=== PATIENT | female | born 1950 | race Caucasian/White ===

== ENCOUNTER 2021-10-25 17:57 | Outpatient (REF) | payer MEDICARE, SELFPAY ==
[2021-10-25 21:05] LABS: HGB 14.2 g/dL (11.2-15.7); MCH 33.6 pg (27.0-33.0); MCHC 34.6 % (32.0-36.0); MCV 97 fL (80-95); MPV 9.7 fL (8.0-11.0); Platelet Count 327 10^3/uL (130-400); RBC 4.23 10^6/uL (3.93-5.22); RDW 13.9 % (11.7-14.6); RDW-SD 45.3 fL; WBC 7.15 10^3/uL (4.4-10.8)
[2021-10-25 21:25] LABS: Anion Gap 10.5 mmol/L (3-11); BUN 18 mg/dL (7-18); CO2 27.5 mmol/L (21.0-32.0); CREATININE 1.1 mg/dL (0.55-1.02); Calculated LDL 120 mg/dL (<100); Chloride 105 mmol/L (98-107); Cholesterol 187 mg/dL (<200); Glucose 69 mg/dL (74-106); HDL Cholesterol 48 mg/dL (40-60); Magnesium 2.2 mg/dL (1.8-2.4); Potassium 3.8 mmol/L (3.5-5.1); Sodium 143 mmol/L (136-145); TSH (W/Ref FT4) 1.22 uIU/mL (0.36-3.74); Triglyceride 99 mg/dL (<150)
== END 2021-10-25 17:58 | disposition home or self-care (01) ==
LOC: NCHCN 17:57
PROVIDERS: PCP Internal Medicine; Visit Provider Nurse Practitioner Family
DX: E78.2 Mixed hyperlipidemia (principal); R25.2 Cramp and spasm; E03.9 Hypothyroidism, unspecified; E11.9 Type 2 diabetes mellitus without complications; R53.83 Other fatigue
CPT/HCPCS: 80048; 80061; 85027; 83735; 84443

== ENCOUNTER 2022-01-27 17:22 | Outpatient (REF) | payer MEDICARE, SELFPAY ==
[2022-01-29 16:43] LABS: Albumin ug/mg Crea 5 (<30); Albumin, Ur 0.9 mg/dL (See Note); Creatinine, Ur 180.9 mg/dL (See Note)
== END 2022-01-27 17:23 | disposition home or self-care (01) ==
LOC: NCHCN 17:22
PROVIDERS: PCP Internal Medicine; Visit Provider Nurse Practitioner Family
DX: E11.9 Type 2 diabetes mellitus without complications (principal)
CPT/HCPCS: 82043; 82570

== ENCOUNTER 2022-05-01 12:13 | Outpatient (REF) | payer MEDICARE, SELFPAY ==
[2022-05-01 15:22] LABS: Anion Gap 7.8 mmol/L (3-11); BUN 16 mg/dL (7-18); CO2 28.2 mmol/L (21.0-32.0); Calculated LDL 116 mg/dL (<100); Chloride 103 mmol/L (98-107); Cholesterol 180 mg/dL (<200); Estimated GFR 60.23 (mL/min/1.73m2); Glucose 103 mg/dL (74-106); HDL Cholesterol 48 mg/dL (40-60); Sodium 139 mmol/L (136-145); Triglyceride 81 mg/dL (<150)
== END 2022-05-01 12:14 | disposition home or self-care (01) ==
LOC: NCHCN 12:13
PROVIDERS: PCP Internal Medicine; Visit Provider Nurse Practitioner Family
DX: E78.2 Mixed hyperlipidemia (principal); I10 Essential (primary) hypertension
CPT/HCPCS: 80048; 80061

== ENCOUNTER 2022-12-20 17:46 | Outpatient (REF) | payer MEDICARE, SELFPAY ==
[2022-12-20 22:26] LABS: Microalb ug/mg Crea 3.6 ug/mg Cr
[2022-12-20 22:29] LABS: COMMENT (LAB VIEW ONLY) 394.23 mg/dL
== END 2022-12-20 17:47 | disposition home or self-care (01) ==
LOC: NCHCN 17:46
PROVIDERS: PCP Internal Medicine; Visit Provider Nurse Practitioner Family
DX: E11.9 Type 2 diabetes mellitus without complications (principal)
CPT/HCPCS: 82043; 82570

== ENCOUNTER 2023-04-19 11:28 | Outpatient (REF) | payer MEDICARE, SELFPAY ==
[2023-04-19 21:04] LABS: ALT 26 U/L (14-59); AST 20 U/L (15-37); Albumin 3.4 g/dL (3.4-5.0); Alkaline Phosphatase 132 U/L (46-116); Anion Gap 5.8 mmol/L (3-11); BUN 11 mg/dL (7-18); Bilirubin, Total 0.4 mg/dL (0.2-1.0); CO2 30.2 mmol/L (21.0-32.0); CREATININE 0.9 mg/dL (0.55-1.02); Calcium 9.2 mg/dL (8.5-10.1); Calculated LDL 78 mg/dL (<100); Chloride 109 mmol/L (98-107); Cholesterol 144 mg/dL (<200); Estimated GFR 67.92 (mL/min/1.73m2); Glucose 106 mg/dL (74-106); HDL Cholesterol 50 mg/dL (40-60); Magnesium 1.9 mg/dL (1.8-2.4); Potassium 3.4 mmol/L (3.5-5.1); Sodium 145 mmol/L (136-145); Total Protein 6.7 g/dL (6.4-8.2); Triglyceride 81 mg/dL (<150); Vitamin B12 251 pg/mL (193-986)
[2023-04-20 13:27] LABS: GGT 26 U/L (5-55)
[2023-04-20 15:16] LABS: PHOSPHORUS 3.6 mg/dL (2.6-4.7)
[2023-04-20 15:39] LABS: Vitamin D 25 Total 27.4 ng/mL (30-100)
== END 2023-04-19 11:29 | disposition home or self-care (01) ==
LOC: NCHCN 11:28
PROVIDERS: PCP Internal Medicine; Visit Provider Nurse Practitioner Family
DX: I10 Essential (primary) hypertension (principal); R74.8 Abnormal levels of other serum enzymes; E55.9 Vitamin D deficiency, unspecified; E11.9 Type 2 diabetes mellitus without complications; E03.9 Hypothyroidism, unspecified
CPT/HCPCS: 80053; 80061; 82306; 82607; 82977; 83735; 84100

== ENCOUNTER 2024-03-24 19:22 | Outpatient (REF) | payer MEDICARE, SELFPAY ==
[2024-03-24 15:59] LABS: HCT 40.9 % (36.0-46.0); HGB 14.5 g/dL (11.2-15.7); MCHC 35.5 % (32.0-36.0); MCV 102 fL (80-95); Platelet Count 304 10^3/uL (130-400); RBC 4.03 10^6/uL (3.93-5.22); RDW 16.8 % (11.7-14.6); RDW-SD 47.8 fL
[2024-03-24 18:10] LABS: ALT 27 U/L (14-59); AST 18 U/L (15-37); Albumin 3.3 g/dL (3.4-5.0); Alkaline Phosphatase 126 U/L (46-116); Anion Gap 8.5 mmol/L (3-11); BUN 22 mg/dL (7-18); Bilirubin, Total 0.39 mg/dL (0.2-1.0); CO2 29.5 mmol/L (21.0-32.0); CREATININE 0.9 mg/dL (0.55-1.02); Calcium 8.6 mg/dL (8.5-10.1); Calculated LDL 73 mg/dL (<100); Chloride 109 mmol/L (98-107); Cholesterol 140 mg/dL (<200); Glucose 114 mg/dL (74-106); HDL Cholesterol 53 mg/dL (40-60); Potassium 4.4 mmol/L (3.5-5.1); Sodium 147 mmol/L (136-145); Total Protein 6.1 g/dL (6.4-8.2); Triglyceride 74 mg/dL (<150); Vitamin B12 249 pg/mL (193-986); Vitamin D 25 Total 42.6 ng/mL (30-100)
[2024-03-24 20:04] LABS: Hemoglobin A1C 5.9 % (<5.7)
== END 2024-03-24 19:23 | disposition home or self-care (01) ==
LOC: NCHCN 19:22
PROVIDERS: PCP Internal Medicine; Visit Provider Nurse Practitioner Family
DX: E78.2 Mixed hyperlipidemia (principal); E11.9 Type 2 diabetes mellitus without complications; M81.0 Age-related osteoporosis without current pathological fracture
CPT/HCPCS: 80053; 80061; 82306; 85027; 82607; 83036

== ENCOUNTER 2024-04-01 13:10 | Outpatient (REF) | payer MEDICARE, SELFPAY ==
[2024-04-01 15:21] LABS: Anion Gap 5.4 mmol/L (3-11); BUN 16 mg/dL (7-18); CO2 30.6 mmol/L (21.0-32.0); Chloride 108 mmol/L (98-107); Estimated GFR 59.49 (mL/min/1.73m2); Glucose 119 mg/dL (74-106); Potassium 3.8 mmol/L (3.5-5.1); Sodium 144 mmol/L (136-145)
[2024-04-01 17:21] LABS: Microalb ug/mg Crea 4.2 ug/mg Cr
== END 2024-04-01 13:11 | disposition home or self-care (01) ==
LOC: NCHCN 13:10
PROVIDERS: PCP Internal Medicine; Visit Provider Nurse Practitioner Family
DX: E87.0 Hyperosmolality and hypernatremia (principal); E11.9 Type 2 diabetes mellitus without complications
CPT/HCPCS: 80048; 82043; 82570

== ENCOUNTER 2024-08-27 09:24 | Outpatient (REF) | payer MEDICARE, SELFPAY ==
[2024-08-27 14:43] LABS: HCT 42.2 % (36.0-46.0); HGB 15.1 g/dL (11.2-15.7); MCHC 35.8 % (32.0-36.0); MCV 98 fL (80-95); MPV 9.5 fL (8.0-11.0); Platelet Count 284 10^3/uL (130-400); RBC 4.31 10^6/uL (3.93-5.22); RDW 15.8 % (11.7-14.6); RDW-SD 46.8 fL
[2024-08-27 15:22] LABS: ALT 29 U/L (14-59); AST 22 U/L (15-37); Albumin 3.5 g/dL (3.4-5.0); Alkaline Phosphatase 135 U/L (46-116); Anion Gap 9.6 mmol/L (3-11); BUN 16 mg/dL (7-18); Bilirubin, Total 0.4 mg/dL (0.2-1.0); CO2 29.4 mmol/L (21.0-32.0); Calcium 8.9 mg/dL (8.5-10.1); Chloride 109 mmol/L (98-107); Estimated GFR 59.49 (mL/min/1.73m2); Glucose 145 mg/dL (74-106); Potassium 3.8 mmol/L (3.5-5.1); Sodium 148 mmol/L (136-145); Total Protein 6.8 g/dL (6.4-8.2); Vitamin B12 351 pg/mL (193-986)
[2024-08-27 15:36] LABS: Hemoglobin A1C 6.5 % (<5.7)
== END 2024-08-27 09:25 | disposition home or self-care (01) ==
LOC: NCHCN 09:24
PROVIDERS: PCP Internal Medicine; Visit Provider Nurse Practitioner Family
DX: E11.9 Type 2 diabetes mellitus without complications (principal)
CPT/HCPCS: 80053; 85027; 82607; 83036

== ENCOUNTER 2025-04-07 20:38 | Outpatient (REF) | payer MEDICARE, SELFPAY ==
[2025-04-07 22:05] LABS: Microalb ug/mg Crea 10.0 ug/mg Cr
== END 2025-04-07 20:39 | disposition home or self-care (01) ==
LOC: NCHCN 20:38
PROVIDERS: PCP Nurse Practitioner Family; Visit Provider Nurse Practitioner Family
DX: E11.9 Type 2 diabetes mellitus without complications (principal)
CPT/HCPCS: 82043; 82570

== ENCOUNTER 2025-04-08 13:20 | Outpatient (CLI) | payer MEDICARE, SELFPAY ==
--- NOTE | 2025-04-08 11:27 | DI.RAD_ITS ---
Exam(s) XR SHOULDER LT COMPLETE 2+V EXAM: XR SHOULDER LT COMPLETE 2+V CLINICAL HISTORY: LEFT SHOULDER PAIN. TECHNIQUE: 2D digital imaging was performed. COMPARISON: No exams were available for comparison FINDINGS: Two views No evidence of fracture or dislocation or abnormal soft tissue calcifications. Subacromial space is not diminished. There are no obvious degenerative changes in the glenohumeral joint. Some degenerative change in the AC joint noted. Bone density is age-appropriate. No osseous lesions. IMPRESSION: No significant radiographic findings. DATA REPOSITORY: RADIATION DOSE DELIVERED:
== END 2025-04-08 13:21 | disposition home or self-care (01) ==
LOC: DIORS 13:20
PROVIDERS: PCP Nurse Practitioner Family; Referring Provider Nurse Practitioner Family; Visit Provider Student in an Organized Health Care Education/Training Program
DX: M25.512 Pain in left shoulder (principal); M75.102 Unspecified rotator cuff tear or rupture of left shoulder, not specified as traumatic; I12.9 Hypertensive chronic kidney disease with stage 1 through stage 4 chronic kidney disease, or unspecified chronic kidney disease; E11.22 Type 2 diabetes mellitus with diabetic chronic kidney disease; N18.9 Chronic kidney disease, unspecified; I10 Essential (primary) hypertension
CPT/HCPCS: 99203; 73030

== ENCOUNTER → 2025-04-29 00:55 | Outpatient (CLI) | payer MEDICARE, SELFPAY ==
--- NOTE | 2025-04-29 09:28 | DI.MRI_ITS ---
Exam(s) MR UPPER JOINT LT WO EXAM: MR UPPER JOINT LT WO CLINICAL HISTORY: L SHOULDER PAIN,LT ROTATOR CUFF TEAR,M75.102. TECHNIQUE: Multiplanar multisequence MRI was performed. COMPARISON: CR XR SHOULDER LT COMPLETE 2+V from 04/08/2025 FINDINGS: BONES: There is no fracture or contusion pattern. JOINTS: There are degenerative changes seen at the acromioclavicular joint. The glenohumeral joint is normal. There is a glenohumeral joint effusion. TENDONS: Supraspinatus: There is a partial tear of the supraspinatus tendon at the musculotendinous junction. There is underlying tendinosis of the supraspinatus tendon. Infraspinatus: Unremarkable. Subscapularis: There is subscapularis tendinosis. Teres Minor: Unremarkable. Biceps and [place]: Unremarkable. MUSCLES: There is mild fatty atrophy of the subscapularis muscle. GLENOID LABRUM: There is fraying of the posterior superior labrum. SOFT TISSUES: Unremarkable. LIGAMENTS: Unremarkable. OTHER: There is fluid seen in the subacromial subdeltoid bursa. IMPRESSION: 1. There is a partial tear of the supraspinatus tendon at the musculotendinous junction. 2. Tendinosis and mild fatty atrophy of the subscapularis. 3. Fraying is seen at the posterior superior labrum. 4. Degenerative changes at the acromioclavicular joint. 5. Glenohumeral joint effusion. DATA REPOSITORY:
== END ==
LOC: DI 00:55
PROVIDERS: PCP Nurse Practitioner Family; Visit Provider Student in an Organized Health Care Education/Training Program
DX: M75.112 Incomplete rotator cuff tear or rupture of left shoulder, not specified as traumatic (principal); M62.511 Muscle wasting and atrophy, not elsewhere classified, right shoulder
CPT/HCPCS: 73221

== ENCOUNTER → 2025-05-12 08:29 | Outpatient (BNVA) | payer MEDICARE, SELFPAY | PROVIDERS: PCP Nurse Practitioner Family; Referring Provider Nurse Practitioner Family; Visit Provider Student in an Organized Health Care Education/Training Program | DX: M75.102 Unspecified rotator cuff tear or rupture of left shoulder, not specified as traumatic (principal) | CPT/HCPCS: 99203 ==